=== PATIENT | male | born 1975 | race Caucasian/White ===

== ENCOUNTER 2016-11-19 10:28 | Emergency (ER) | payer MEDICAID ==
[~2016-11-19] VITALS: Ht 180.3 cm; Wt 94.1 kg
[2016-11-19 11:30] VITALS: BP 135/78
== END 2016-11-19 11:35 | disposition home or self-care (01) ==
LOC: ED 10:28
DX: R05 Cough (principal); J45.909 Unspecified asthma, uncomplicated